=== PATIENT | male | born 1980 | race African-American/Black ===

== ENCOUNTER 2022-11-18 13:42 | Emergency (ER) | payer MEDICAID ==
[2022-11-18 13:49] VITALS: PULSE 68; RESP 14
== END 2022-11-18 14:18 | disposition home or self-care (01) ==
LOC: ER 13:42
DX: Z00.00 Encounter for general adult medical examination without abnormal findings (principal)
CPT/HCPCS: 99281

== ENCOUNTER 2023-10-15 07:30 | Emergency (ER) | payer SELFPAY ==
[~2023-10-15] VITALS: Ht 175.3 cm; Wt 66.0 kg
[2023-10-15 07:47] VITALS: O2SAT 100
[2023-10-15 08:06] LABS: HEMOGLOBIN. 13.8 g/dL (14.0-18.0); MEAN CORPUSCULAR HEMOGLOBIN 32.5 pg (28.0-32.0); MEAN CORPUSCULAR HGB CONC 33.7 g/dL (31.0-37.0); MEAN CORPUSCULAR VOLUME 96.6 fL (80.0-94.0); PLATELET 215 x1000/uL (130-400); RED BLOOD CELL COUNT 4.24 mill/uL (4.7-6.1); RED CELL DISTRIBUTION WIDTH 13.3 % (11.6-14.6)
[2023-10-15 08:17] LABS: DIFFERENTIAL COMMENT 1
[2023-10-15 08:20] LABS: CARBON DIOXIDE 24 mEq/L (21-32); CHLORIDE 106 mEq/L (98-107); POTASSIUM 3.8 mEq/L (3.5-5.1); SODIUM 135 mEq/L (136-145)
[2023-10-15 08:21] LABS: CALCIUM 9.6 mg/dL (8.7-10.4)
[2023-10-15 08:22] LABS: CLARITY URINE CLOUDY (CLEAR); COLOR URINE YELLOW (YELLOW); GLUCOSE URINE 3+ (NEGATIVE); KETONES URINE NEGATIVE (NEGATIVE); LEUKOCYTE ESTERASE URINE 3+ (NEGATIVE); NITRITE URINE POSITIVE (NEGATIVE); OCCULT BLOOD URINE 2+ (NEGATIVE); PROTEIN URINE 1+ (NEGATIVE); SPECIFIC GRAVITY URINE 1.023 (1.005-1.030); UROBILINOGEN URINE 0.2 E.U./dL (0.2-1.0)
[2023-10-15 08:25] LABS: CREATININE 0.9 mg/dL (0.6-1.3)
[2023-10-15 08:26] LABS: GLUCOSE 113 mg/dL (70-105); UREA NITROGEN BLOOD 10 mg/dL (9-23)
[2023-10-15 08:27] LABS: ALANINE AMINOTRANSFERASE 15 IU/L (10-49); ALBUMIN 4.8 g/dL (3.2-4.8); ASPARTATE AMINOTRANSFERASE 18 IU/L (<34)
[2023-10-15 08:28] LABS: BILIRUBIN DIRECT 0.3 mg/dL (<=3.0); PROTEIN TOTAL 7.4 g/dL (6.0-8.3)
[2023-10-15 08:45] LABS: BACTERIA URINE 4+; SQUAMOUS EPITHELIAL CELL URINE NONE SEEN /lpf (RARE/1+)
[2023-10-15 08:46] LABS: WBC URINE TNTC /hpf (0-2)
[2023-10-15 09:00] LABS: PLATELET ESTIMATE NORMAL
[2023-10-15] MEDS ORDERED: SODIUM CHLORIDE 0.9% 1,000 ML IV ONE (09:15)
[2023-10-15] MEDS ORDERED: CEFTRIAXONE 1GM/50ML 50 ML IV ONE (09:15)
[2023-10-15] MEDS ORDERED: CEFP200T13 MT (10:33)
[2023-10-15] MEDS: KETOROLAC 30MG/ML VIAL IV STA (10:54)
[2023-10-15 11:00] VITALS: BP 116/84; PULSE 3; RESP 15; TEMP 98.5
== END 2023-10-15 11:16 | disposition home or self-care (01) ==
LOC: ER 07:30
DX: N12 Tubulo-interstitial nephritis, not specified as acute or chronic (principal); K58.9 Irritable bowel syndrome, unspecified
CPT/HCPCS: 80076; 80048; 81003; 83690; 85025; 86850; 86900; 86901; 87040; 87086; 87186; 87077; 36415; 74176; 93005; 96374; 99285; J0696; J1885; J7030; Z7610

== ENCOUNTER 2024-03-21 09:57 | Emergency (ER) | payer OTHER ==
[~2024-03-21] VITALS: Ht 175.3 cm; Wt 54.0 kg
[~2024-03-21 09:57] MED LIST: CEFP200T13 MT
[2024-03-21 10:24] VITALS: O2SAT 100
[2024-03-21] MEDS: ACETAMINOPHEN 325MG TABLET PO NR (11:51)
[2024-03-21] MEDS: IBUPROFEN 400MG TABLET PO NR (11:51)
[2024-03-21] MEDS: LIDOCAINE 5% PATCH TOP SCH (11:53)
[2024-03-21 16:25] VITALS: BP 122/78; PULSE 78; RESP 18; TEMP 36.89184; O2SAT 99
== END 2024-03-21 16:26 | disposition home or self-care (01) ==
LOC: ER 09:57
DX: S39.012A Strain of muscle, fascia and tendon of lower back, initial encounter (principal); X58.XXXA Exposure to other specified factors, initial encounter; Y93.89 Activity, other specified; Y92.89 Other specified places as the place of occurrence of the external cause; Y99.8 Other external cause status
CPT/HCPCS: 99284